=== PATIENT | female | born 1975 | race Two or more races ===

== ENCOUNTER 2017-11-19 21:51 | Emergency (ER) | payer BC ==
[~2017-11-19] VITALS: Ht 162.6 cm; Wt 68.0 kg
--- NOTE | 2017-11-19 21:55 | NUR ---
pt ambulatory to er bed 11. here for cough and congestion x 1 week. also c/o headache. gowned and placed on monitor. stable vitals. awaiting md mcnamara.
--- NOTE | 2017-11-19 22:00 | NUR ---
dr salinas at bedside for eval.
[2017-11-19] MEDS ORDERED: HYDROCODONE/APAP 5/325MG 1 EACH TABLET ONE (22:06)
--- NOTE | 2017-11-19 22:09 | NUR ---
radiology at bedside for chest xray.
[2017-11-19] MEDS ORDERED: predniSONE 20 MG TABLET PO ONE (22:30)
[2017-11-19] MEDS ORDERED: GUAIFENESIN/D-METHORPHAN HB 5 ML UDC PO ONE (22:30)
[2017-11-19] MEDS ORDERED: oxyCODONE/APAP (5/325 MG) 1 UDTAB TABLET PO ONE (22:30)
[2017-11-19] MEDS ORDERED: GUAIFENESIN/D-METHORPHAN HB 5 ML UDC ONE ×2 (22:47→22:50)
[2017-11-19] MEDS ORDERED: predniSONE 10 MG TABLET ONE (22:47)
[2017-11-19] MEDS ORDERED: predniSONE 20 MG TABLET ONE (22:47)
[2017-11-19] MEDS ORDERED: PSEUDOEPHEDRINE HCL 30 MG TABLET ONE (23:03)
[2017-11-19 23:08] VITALS: BP 114/75
--- NOTE | 2017-11-19 23:08 | NUR ---
Patient discharged to home in stable condition. Written and verbal after care instructions given. Patient verbalizes understanding of instruction.
[2017-11-19] MEDS ORDERED: PSEUDOEPHEDRINE HCL 30 MG TABLET PO ONE (23:30)
== END 2017-11-19 23:09 | disposition home or self-care (01) ==
LOC: ER 21:54
DX: J40 Bronchitis, not specified as acute or chronic (principal); Z98.890 Other specified postprocedural states
CPT/HCPCS: 71045; 99284; A4606; J7512 ×2; Z7610

== ENCOUNTER 2018-02-20 10:34 | Emergency (ER) | payer MEDICAID ==
[~2018-02-20] VITALS: Ht 157.5 cm; Wt 63.5 kg
--- NOTE | 2018-02-20 10:50 | NUR ---
A/OX4, PT IS AMBULATORY TO ED BED 04, PT IS C/O MID BACK PAIN, RADAITING DOWN L LEG S/P FELL OFF STAIRS AROUND 0800AM, NO KO. NAD VSS RR EVEN AND UNLABORED. SKIN IS WARM, AND NON DIAPHORETIC. PENDING ER MD EVALUATION
[2018-02-20 11:12] LABS: BASOPHILS % (AUTO) 0.8 % (0.0-2.0); EOSINOPHILS % (AUTO) 0.9 % (0.0-6.0); HEMATOCRIT 35 % (33-45); HEMOGLOBIN 12.4 g/dL (11.5-14.8); LYMPHOCYTES # (AUTO) 1.7 /CMM (0.8-4.8); LYMPHOCYTES % (AUTO) 33.9 % (20.0-44.0); MEAN CORPUSCULAR HGB CONC 35 g/dl (31.0-36.0); MEAN CORPUSCULAR VOLUME 88 fL (82-100); MONOCYTES # (AUTO) 0.3 /CMM (0.1-1.30); MONOCYTES % (AUTO) 5.2 % (2.0-12.0); NEUTROPHILS % (AUTO) 59.2 % (43.0-81.0); PLATELET COUNT (AUTO) 279 /CMM (150-450); RDW COEFFICIENT OF VARIATION 10.7 (11.5-15.0)
[2018-02-20 11:28] LABS: ALANINE AMINOTRANSFERASE 14 U/L (12-78); ALBUMIN 3.5 g/dL (3.4-5.0); ALKALINE PHOSPHATASE 67 U/L (46-116); ASPARTATE AMINOTRANSFERASE 10 U/L (15-37); BILIRUBIN,DIRECT 0.1 mg/dL (0.0-0.2); BILIRUBIN,TOTAL 0.4 mg/dL (0.2-1.0); CALCIUM, SERUM 9.1 mg/dL (8.5-10.1); CARBON DIOXIDE 27 mmol/L (21-32); CHLORIDE 106 mmol/L (98-107); CREATININE 0.6 mg/dL (0.6-1.3); GLUCOSE 82 mg/dL (74-106); POTASSIUM 3.7 mmol/L (3.5-5.1); SODIUM SERUM 140 mmol/L (136-145); UREA NITROGEN, BLOOD 16 mg/dL (7-18)
[2018-02-20 11:32] LABS: TROPONIN I < 0.017 ng/mL (0.00-0.056)
--- NOTE | 2018-02-20 11:50 | NUR ---
Patient discharged to home in stable condition. Written and verbal after care instructions given. Patient verbalizes understanding of instruction.
[2018-02-20 11:51] VITALS: BP 106/66
== END 2018-02-20 11:52 | disposition home or self-care (01) ==
LOC: ER 10:36
DX: M54.6 Pain in thoracic spine (principal); R53.1 Weakness; Z98.890 Other specified postprocedural states
CPT/HCPCS: 36415; 72110-TC; 80048-TC; 80076-TC; 84484-TC; 85025-TC; A4606; Z7610

== ENCOUNTER 2021-04-03 14:59 | Emergency (ER) | payer BC, MEDICAID ==
[~2021-04-03] VITALS: Ht 157.5 cm; Wt 72.6 kg
[2021-04-03 15:25] VITALS: BP 136/81
--- NOTE | 2021-04-03 15:31 | NUR ---
TO ER BED 2, C/O BILATERAL EAR PAIN, AWAITING MD FOSTER
[2021-04-03] MEDS ORDERED: NEOM10DR11 OT (16:00)
[2021-04-03] MEDS ORDERED: ACET-907 PO (16:00)
== END 2021-04-03 16:16 | disposition home or self-care (01) ==
LOC: ER 15:06
DX: H60.93 Unspecified otitis externa, bilateral (principal); Z98.890 Other specified postprocedural states

== ENCOUNTER 2021-10-13 10:57 | Emergency (ER) | payer BC ==
[~2021-10-13] VITALS: Ht 157.5 cm; Wt 70.3 kg
[~2021-10-13 10:57] MED LIST: ACET-907 PO; NEOM10DR11 OT
[2021-10-13 12:27] LABS: BASOPHILS % (AUTO) 0.7 % (0.0-2.0); EOSINOPHILS % (AUTO) 0.4 % (0.0-6.0); HEMATOCRIT 39 % (33-45); HEMOGLOBIN 12.9 g/dL (11.5-14.8); LYMPHOCYTES % (AUTO) 16.6 % (20.0-44.0); MEAN CORPUSCULAR HGB CONC 34 g/dl (31.0-36.0); MEAN CORPUSCULAR VOLUME 93 fL (82-100); MONOCYTES # (AUTO) 0.4 K/uL (0.1-1.30); MONOCYTES % (AUTO) 6.5 % (2.0-12.0); NEUTROPHILS # (AUTO) 4.8 K/uL (1.8-8.9); NEUTROPHILS % (AUTO) 75.8 % (43.0-81.0); PLATELET COUNT (AUTO) 247 K/uL (150-450); RED BLOOD CELL COUNT(AUTO) 4.14 MIL/uL (4.0-5.2); WHITE BLOOD COUNT (AUTO) 6.3 K/uL (4.3-11.0)
[2021-10-13 12:53] LABS: CALCIUM, SERUM 9.1 mg/dL (8.5-10.1); CARBON DIOXIDE 26 mmol/L (21-32); CHLORIDE 104 mmol/L (98-107); CREATININE 0.7 mg/dL (0.6-1.3); GLUCOSE 96 mg/dL (74-106); POTASSIUM 3.8 mmol/L (3.5-5.1); SODIUM SERUM 138 mmol/L (136-145); UREA NITROGEN, BLOOD 13 mg/dL (7-18)
[2021-10-13 13:25] VITALS: BP 120/65
== END 2021-10-13 13:37 | disposition home or self-care (01) ==
LOC: ER 11:00
DX: M54.2 Cervicalgia (principal); R07.89 Other chest pain; R51.9 Headache, unspecified; Z98.890 Other specified postprocedural states
CPT/HCPCS: 36415; 70490-TC; 71045-TC; 80048-TC; 84484-TC; 84702-TC; 85025-TC

== ENCOUNTER 2022-03-29 11:18 | Emergency (ER) | payer BC ==
[~2022-03-29] VITALS: Ht 157.5 cm; Wt 79.8 kg
[2022-03-29 11:24] VITALS: BP 103/72
--- NOTE | 2022-03-29 11:24 | NUR ---
RIGHT ANKLE AND BILATERAL KNEE PAIN S/P GLF GOING DOWN STAIRS YESTERDAY.
--- NOTE | 2022-03-29 11:55 | NUR ---
X RAY AT BEDSIDE
[2022-03-29] MEDS ORDERED: NAPR-1192 PO ×2 (13:21→13:32)
--- NOTE | 2022-03-29 13:39 | NUR ---
Patient discharged to home in stable condition. Written and verbal after care instructions given. Patient verbalizes understanding of instruction.
== END 2022-03-29 13:39 | disposition home or self-care (01) ==
LOC: ER 11:23
DX: S93.401A Sprain of unspecified ligament of right ankle, initial encounter (principal); M25.562 Pain in left knee; Z98.890 Other specified postprocedural states; Z79.899 Other long term (current) drug therapy; W18.39XA Other fall on same level, initial encounter; Y93.89 Activity, other specified; Y92.89 Other specified places as the place of occurrence of the external cause; Y99.8 Other external cause status
CPT/HCPCS: 73564-TC; 73610-TC

== ENCOUNTER 2023-05-13 15:17 | Emergency (ER) | payer BC ==
[~2023-05-13] VITALS: Ht 157.5 cm; Wt 73.5 kg
[~2023-05-13 15:17] MED LIST changes: +NAPR-1192 PO
[2023-05-13] MEDS ORDERED: IV NS 0.9% 500 ML BAG IV ONE (16:30)
[2023-05-13 16:36] LABS: BASOPHILS % (AUTO) 0.3 % (0.0-2.0); EOSINOPHILS % (AUTO) 0.6 % (0.0-6.0); HEMATOCRIT 42 % (33-45); HEMOGLOBIN 13.8 g/dL (11.5-14.8); LYMPHOCYTES # (AUTO) 0.6 K/uL (0.8-4.8); LYMPHOCYTES % (AUTO) 10.1 % (20.0-44.0); MEAN CORPUSCULAR HEMOGLOBIN 30 PG (26.0-33.0); MEAN CORPUSCULAR HGB CONC 33 g/dl (31.0-36.0); MEAN CORPUSCULAR VOLUME 90 fL (82-100); MONOCYTES # (AUTO) 0.3 K/uL (0.1-1.30); MONOCYTES % (AUTO) 6.2 % (2.0-12.0); NEUTROPHILS # (AUTO) 4.6 K/uL (1.8-8.9); NEUTROPHILS % (AUTO) 82.8 % (43.0-81.0); PLATELET COUNT (AUTO) 220 K/uL (150-450); RED BLOOD CELL COUNT(AUTO) 4.61 MIL/uL (4.0-5.2); WHITE BLOOD COUNT (AUTO) 5.6 K/uL (4.3-11.0)
[2023-05-13 16:46] LABS: CALCIUM, SERUM 9.2 mg/dL (8.5-10.1); CARBON DIOXIDE 23 mmol/L (21-32); CHLORIDE 102 mmol/L (98-107); CREATININE 0.7 mg/dL (0.6-1.3); GLUCOSE 96 mg/dL (74-106); POTASSIUM 3.5 mmol/L (3.5-5.1); SODIUM SERUM 136 mmol/L (136-145); UREA NITROGEN, BLOOD 9 mg/dL (7-18)
[2023-05-13 16:52] LABS: ALANINE AMINOTRANSFERASE 25 U/L (12-78); ALBUMIN 3.7 g/dL (3.4-5.0); ALKALINE PHOSPHATASE 90 U/L (46-116); ASPARTATE AMINOTRANSFERASE 15 U/L (15-37); BILIRUBIN,DIRECT 0.1 mg/dL (0.0-0.2); BILIRUBIN,TOTAL 0.4 mg/dL (0.2-1.0); LIPASE 93 U/L (73-393); TOTAL PROTEIN, SERUM 7.5 g/dL (6.4-8.2)
[2023-05-13 18:01] LABS: APPEARANCE,URINE CLEAR (CLEAR); BILIRUBIN,URINE NEGATIVE (NEGATIVE); BLOOD, URINE TRACE-INTA Ery/uL (NEGATIVE); COLOR,URINE YELLOW (YELLOW); KETONES,URINE NEGATIVE (NEGATIVE); LEUKOCYTE ESTERASE ,URINE TRACE (NEGATIVE); NITRITE, URINE NEGATIVE (NEGATIVE); PH,URINE 5.5 (5.0-8.0); PROTEIN,URINE NEGATIVE (NEGATIVE); UGLUCOSE NEGATIVE (NEGATIVE); UROBILINOGEN,URINE 0.2 EU/dL (0.2)
[2023-05-13 18:25] LABS: PREGNANCY TEST URINE QUAL NEGATIVE (NEGATIVE)
[2023-05-13 18:28] LABS: ADD URINE CULTURE NO; BACTERIA,URINE RARE /HPF (None Seen); SQUAMOUS EPITHELIAL CELL,UR 0-2 /HPF (None Seen)
[2023-05-13 21:05] VITALS: BP 108/73; TEMP 99.6; O2SAT 99
== END 2023-05-13 21:10 | disposition home or self-care (01) ==
LOC: ER 15:17
DX: M79.10 Myalgia, unspecified site (principal); R10.9 Unspecified abdominal pain; Z20.822 Contact with and (suspected) exposure to COVID-19
CPT/HCPCS: 99285; 74176; 71045; 87426; 93005; 85025; 80048; 87086; 83605; 83690; 80076; 84703; 81001; 36415; 84484; J7040; C9803

== ENCOUNTER 2025-03-29 20:27 | Emergency (ER) | payer BC, MEDICAID ==
[~2025-03-29] VITALS: Ht 157.5 cm; Wt 67.6 kg
[2025-03-30] MEDS ORDERED: MORPHINE SULFATE INJ 4 MG/ML DISP.SYRIN ONE (00:01)
[2025-03-30] MEDS ORDERED: ONDANSETRON HCL/PF 4 MG/2 ML VIAL ONE (00:01)
[2025-03-30 00:05] LABS: PLATELET COUNT (AUTO) 263 K/uL (150-450); RED BLOOD CELL COUNT(AUTO) 4.20 MIL/uL (4.0-5.2); RED CELL DISTRIBUTION WIDTH 11.9 % (11.5-15.0); WHITE BLOOD COUNT (AUTO) 4.9 K/uL (4.3-11.0)
[2025-03-30] MEDS: MORPHINE SULFATE INJ 2 MG/ML DISP.SYRIN IV ONE (00:14)
[2025-03-30] MEDS: ONDANSETRON HCL/PF 4 MG/2 ML VIAL IVP ONE (00:14)
[2025-03-30] MEDS: IV NS 0.9% 1,000 ML BAG IV ONE (00:14)
[2025-03-30 00:18] LABS: INR 0.99 (0.91-1.10)
[2025-03-30 00:22] LABS: ASPARTATE AMINOTRANSFERASE 9.0 U/L (15-37); CALCIUM, SERUM 9.0 mg/dL (8.5-10.1); CREATININE 0.6 mg/dL (0.6-1.3); SODIUM SERUM 140.0 mmol/L (136-145); TOTAL PROTEIN, SERUM 7.2 g/dL (6.4-8.2); UREA NITROGEN, BLOOD 15.0 mg/dL (7-18)
[2025-03-30 00:41] LABS: APPEARANCE,URINE SLIGHTLY CLOUDY (CLEAR); BLOOD, URINE NEGATIVE Ery/uL (NEGATIVE); LEUKOCYTE ESTERASE ,URINE 1+ (NEGATIVE); NITRITE, URINE NEGATIVE (NEGATIVE); UGLUCOSE NEGATIVE (NEGATIVE)
[2025-03-30 00:45] LABS: SQUAMOUS EPITHELIAL CELL,UR Few /HPF (None Seen)
[2025-03-30 00:47] LABS: CALCIUM OXALATE CRYSTALS,UR Moderate /HPF (None Seen); PREGNANCY TEST URINE QUAL NEGATIVE (NEGATIVE)
[2025-03-30 00:49] LABS: ADD URINE CULTURE YES
[2025-03-30 00:50] LABS: YEAST,URINE Rare /HPF (None Seen)
[2025-03-30 03:52] VITALS: BP 120/75; TEMP 98; O2SAT 99
== END 2025-03-30 03:53 | disposition home or self-care (01) ==
LOC: ER 20:33
DX: K82.8 Other specified diseases of gallbladder (principal); K76.0 Fatty (change of) liver, not elsewhere classified; Z79.899 Other long term (current) drug therapy
CPT/HCPCS: 99285; 74176; 85025; 80048; 83690; 80076; 84703; 81001; 36415; 85730; 96374; 76705; 96361; 96375; 87077; 87086; J2270; J2405; J7030